=== PATIENT | female | born 1950 | race Caucasian/White ===

== ENCOUNTER → 2018-12-05 | Outpatient (CLI) | payer MEDICARE, OTHER ==
[~2018-12-05] MED LIST: ALEVE220 M1 PO; ASPIR 8181 MG PO; BREO INHALER; CYMBALTA60 MG PO; ESGIC 50-325-41 EACH PO; GEMFIBROZIL600 MG PO; HYDRALAZINE HCL25 MG PO; IBUPROFEN400 MG PO; JANUVIA100 MG PO; LEVOTHY; LEVOTHYROXINE PO; LEVOTHYROXINE100 MCG PO; METFORMIN HCL500 MG PO; NORCO 10-325 T1 EACH PO; NORCO 10MG-325MG1 EA PO; OMEPRAZOLE40 MG PO; SERTRALINE HCL100 MG PO; SINGULAIR10 MG PO; SYMBICORT 80-10.2 GM INH; TOPAMAX50 MG PO; TRIAMTERENE-HC1 EACH PO; ZANTAC150 MG PO; [UNRECOGNIZED DRUG - OTHER]
--- NOTE | 2018-12-05 12:58 | Diagnostic Imaging Report ---
Exam: Bilateral hands 3 views History: Chronic bilateral hand pain Comparison: None. Findings: Left hand: No acute, displaced fracture or dislocation. Appropriate alignment between the distal radius, lunate, and capitate on the lateral radiograph. Joint spaces are well-maintained. No erosions. Soft tissues are unremarkable. Right hand: No acute, displaced fracture or dislocation. Appropriate alignment between the distal radius, lunate, and capitate is maintained on the lateral radiograph. Joint spaces are well-maintained without erosions. Soft tissues are unremarkable. Impression: Unremarkable radiographs of the hands. Signed by: Dr. Bari Correa M.D. on 12/05/2018 12:55 PM
== END ==
LOC: RAD 12:00
PROVIDERS: ATTEND Internal Medicine
DX: M79.642 Pain in left hand (principal); M79.641 Pain in right hand; M79.645 Pain in left finger(s); M79.644 Pain in right finger(s)

== ENCOUNTER → 2018-12-26 | Day surgery (SDC) | payer MEDICARE, OTHER ==
[2018-12-19 11:16] LABS: BASOPHILS # (AUTO) 0.1 (0.0-0.1); BASOPHILS % 0.7 % (0.0-1.0); EOSINOPHILS # (AUTO) 0.4 (0.0-0.4); EOSINOPHILS % 4.6 % (0.0-6.0); LYMPHOCYTES # (AUTO) 2.2 (1.0-3.2); MEAN CORPUSCULAR HEMOGLOBIN 27.4 pg (28-32); MEAN CORPUSCULAR HGB CONC 32.6 g/dL (31-35); MEAN CORPUSCULAR VOLUME 84.1 fL (81-99); MONOCYTES # (AUTO) 0.7 (0.2-0.8); MONOCYTES % 8.7 % (4.4-11.3); NEUTROPHILS # (AUTO) 4.8 (2.1-6.9); NEUTROPHILS % 58.4 % (38.7-80.0); PLATELET COUNT 227 x10e3/uL (140-360); RED BLOOD COUNT 4.64 x10e6/uL (3.6-5.1); RED CELL DISTRIBUTION WIDTH 13.9 % (11.7-14.4)
[2018-12-19 11:18] LABS: HEMOGLOBIN 12.7 g/dL (12.0-16.0)
[~2018-12-26] MED LIST changes: +ACETAMINOPHEN 1000 MG/100 ML IV ONE; +ACETAMINOPHEN/CODEINE 300MG - 30MG TAB ONE; +BIOTIN2500 MCG; +BUPIVACAINE 0.25% 30ML SDV INJ ONE; +CEFAZOLIN SOD 1 GM/NS 50ML 50 ML IV ONE; +DEXAMETHASONE SOD PHOS INJ 4 MG/ML VIAL ONE; +FENTANYL CITRATE/PF 100MCG/2 ML INJ ONE; +LIDOCAINE HCL 2% LOCAL INJ 5 ML SDV VIAL INJ ONE; +MUPIROCIN 2% OINT 22 GM TUBE ONE; +NIACIN500 M2 PO; +ONDANSETRON HCL INJ 2MG/ML 2ML 2 MG/ML VIAL ONE; +PROPOFOL IV EMULSION 10 MG/ML 20 ML VIAL ONE; +SEVOFLURANE INHAL SOLN 250 ML PEN BTL ONE; +SYNTHROID100 MCG PO; +[UNRECOGNIZED DRUG - OTHER]
--- OUTSIDE RECORDS SUMMARY | 2018-12-26 07:04 | XMS REPORT ---
Author Author [facility] Organization [facility] Address Unknown Phone Unavailable Care Team Providers Care Inspector [employer] Name Role Phone MELVA SWAIN Unavailable Unavailable Problems This patient has no known problems. Allergies, Adverse Reactions, Alerts This patient has no known allergies or adverse reactions. Medications This patient has no known medications. Results Test Description Test Time Test Comments Text Results Atomic Results Result Comments HAND THREE VIEWS BILATERAL 2018-12-05 12:52:00 [place] [address] Patient Name: STEPHANY LAGOS MR #: [id number] : 1950 Age/Sex: 68/F Req #: [id number] Adm Physician: Ordered by: MELVA SWAIN MD Report #: [id number] Location: [facility] Room/Bed: Procedure: [id number] DX/HAND THREE VIEWS BILATERAL Exam Date: Exam Time: REPORT STATUS: Signed Exam: Bilateral hands 3 views History: Chronic bilateral hand pain Comparison: None. Findings: Left hand: No acute, displaced fracture or dislocation. Appropriate alignment between the distal radius, lunate, and capitate on the lateral radiograph. Joint spaces are well-maintained. No erosions. Soft tissues are unremarkable. Right hand: No acute, displaced fracture or dislocation. Appropriate alignment between the distal radius, lunate, and capitate is maintained on the lateral radiograph. Joint spaces are well-maintained without erosions. Soft tissues are unremarkable. Impression: Unremarkable radiographs of the hands. Signed by: Dr. Farhat Cool M.D. on 12/05/2018 12:55 PM Dictated By: FARHAT COOL MD 54 Transcribed By: HANNAH on 12/05/181254 COPY TO: MELVA SWAIN MD
--- NOTE | 2018-12-26 10:35 | Operative Report ---
DATE OF PROCEDURE: December 26, 2018 PREOPERATIVE DIAGNOSIS: Stenosing tenosynovitis of right index finger, right ring finger, left long finger, left ring finger. POSTOPERATIVE DIAGNOSIS: Stenosing tenosynovitis of right index finger, right ring finger, left long finger, left ring finger. OPERATION PERFORMED: Tenovaginotomy of right index finger, right ring finger, left long finger, left ring finger. ANESTHESIA: General. HISTORY: The patient is a 68-year-old female who presents with stenosing tenosynovitis of the right index finger, right ring finger, left long finger, left ring finger that is recalcitrant to conservative treatment. The risks, benefits, and alternatives of treatment were discussed with the patient and she is prepared to undergo the procedure as outlined. DESCRIPTION OF PROCEDURE: The patient was brought to the operating theater. After the induction of adequate general/regional anesthesia, the patient was prepped and draped in a supine position. A time out was performed by the entire operating room team. An oblique incision was marked out over the A1 kelly of the right index finger, right ring finger, left long finger, left ring finger. The upper extremity was exsanguinated, and a tourniquet was inflated to a pressure of 250 mmHg. The incision was made through the skin and subcutaneous tissues. All venous tributaries were controlled with bipolar cautery. The incision was deepened through the palmar tissues. The neurovascular bundles on the radial and ulnar sides of the flexor tendon sheath were identified and retracted away from the flexor tendon sheath and preserved. The A1 kelly of the affected fingers was identified and incised longitudinally, taking care to protect and preserve the flexor tendons within the sheath. After the complete length of the kelly had been transected, the tendons were placed in a range of motion. There was noted to be good motion without any locking. The wound was then copiously irrigated with bacteriostatic saline and closed with 5-0 nylon in an interrupted horizontal mattress fashion. A Marcaine field block was performed at the operative site. The tourniquet was deflated. All the fingers pinked up nicely. A sterile bulky conforming bandage was applied to the hand, and the patient was returned to the recovery room in satisfactory condition and was discharged with a postoperative instruction sheet as well as a followup appointment. Job#: [id number] JOB
[2018-12-26 11:00] VITALS: BP 147/78
== END | disposition home or self-care (01) ==
LOC: OR 07:00 → EDSTATUS 09:00
PROVIDERS: ATTEND Plastic Surgery
DX: M65.332 Trigger finger, left middle finger (principal); M65.342 Trigger finger, left ring finger; M65.321 Trigger finger, right index finger; M65.341 Trigger finger, right ring finger; I11.0 Hypertensive heart disease with heart failure; I50.9 Heart failure, unspecified; I83.90 Asymptomatic varicose veins of unspecified lower extremity; E11.9 Type 2 diabetes mellitus without complications; E03.9 Hypothyroidism, unspecified; K44.9 Diaphragmatic hernia without obstruction or gangrene; Z01.810 Encounter for preprocedural cardiovascular examination; Z01.812 Encounter for preprocedural laboratory examination; Z79.82 Long term (current) use of aspirin; Z79.84 Long term (current) use of oral hypoglycemic drugs
CPT/HCPCS: 26055 ×4; 36415 ×2; 82948; 85025; 93005; J0131; J0690; J1100; J2001; J2405; J2704

== ENCOUNTER → 2019-07-24 | Day surgery (SDC) | payer MEDICARE, OTHER ==
[~2019-07-24] MED LIST changes: -ACETAMINOPHEN 1000 MG/100 ML IV ONE; -ACETAMINOPHEN/CODEINE 300MG - 30MG TAB ONE; -BUPIVACAINE 0.25% 30ML SDV INJ ONE; -CEFAZOLIN SOD 1 GM/NS 50ML 50 ML IV ONE; +DEXAMETHASONE SOD PHOS 10 MG/1 ML VIAL ONE; -DEXAMETHASONE SOD PHOS INJ 4 MG/ML VIAL ONE; +ETODOLAC500 M1; +FISH OIL 1,0001 EAC3; +IOPAMIDOL 200 MG/ML 20 ML VIAL IT ONE; +LIDOCAINE HCL 1% 30ML-PF VIAL ONE; +METHOCARBAMOL750 MG PO; +MIDAZOLAM HCL 2 MG/2 ML VIAL ONE; +MULTIVITAMINS1 EAC7; -MUPIROCIN 2% OINT 22 GM TUBE ONE; -ONDANSETRON HCL INJ 2MG/ML 2ML 2 MG/ML VIAL ONE; +PREMARIN0.625 MG PO; -SEVOFLURANE INHAL SOLN 250 ML PEN BTL ONE; +VITAMIN B-121000 MCG PO
[2019-07-24 08:15] VITALS: BP 159/87
== END | disposition home or self-care (01) ==
LOC: OR 05:31
PROVIDERS: ATTEND Physical Medicine & Rehabilitation Pain Medicine
DX: M54.16 Radiculopathy, lumbar region (principal); M54.12 Radiculopathy, cervical region; M46.1 Sacroiliitis, not elsewhere classified; I10 Essential (primary) hypertension; E11.9 Type 2 diabetes mellitus without complications; E03.9 Hypothyroidism, unspecified; Z79.82 Long term (current) use of aspirin; Z79.84 Long term (current) use of oral hypoglycemic drugs; Z86.718 Personal history of other venous thrombosis and embolism
CPT/HCPCS: 36415; 64483; 64484; 82948; 93005; J1100; J2001 ×2; J2250; J2704; J3010; Q9967; 77003